=== PATIENT | female | born 1980 | race African-American/Black ===

== ENCOUNTER 2017-05-28 00:05 | Emergency (ER) | payer OTHER ==
[~2017-05-28] VITALS: Wt 136.0 kg
[2017-05-28] MEDS ORDERED: IBUPROFEN 800 MG TAB PO ONE (02:30)
[2017-05-28] MEDS ORDERED: IBUP800T25 PO (04:09)
[2017-05-28] MEDS ORDERED: CYCL-319 PO (04:09)
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
[2017-05-28 04:48] VITALS: BP 122/77; PULSE 75; RESP 20; TEMP 98.3
== END 2017-05-28 04:51 | disposition home or self-care (01) ==
LOC: FTE 00:05
DX: M62.830 Muscle spasm of back (principal); M62.838 Other muscle spasm; R40.2412 Glasgow coma scale score 13-15, at arrival to emergency department
CPT/HCPCS: 72040; 72100; Z7610

== ENCOUNTER 2018-12-16 12:19 | Emergency (ER) | payer OTHER ==
[~2018-12-16] VITALS: Wt 105.0 kg
[~2018-12-16 12:19] MED LIST: CYCL10TA7 PO; IBUP800T48 PO
[2018-12-16 12:56] VITALS: BP 120/62; PULSE 89; RESP 20
[2018-12-16] MEDS ORDERED: KETOROLAC 30 MG INJ IM STA (12:58)
[2018-12-16] MEDS ORDERED: IBUP-1542 PO (13:00)
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
== END 2018-12-16 14:15 ==
LOC: E/R 12:19
DX: S05.12XA Contusion of eyeball and orbital tissues, left eye, initial encounter (principal); E11.9 Type 2 diabetes mellitus without complications; Y08.89XA Assault by other specified means, initial encounter
CPT/HCPCS: 82962; 96372; 99284; J1885